=== PATIENT | female | born 1980 | race Caucasian/White ===

== ENCOUNTER 2017-08-06 15:24 | Emergency (ER) | payer SELFPAY ==
[2017-08-06 15:44] VITALS: BP 132/79; PULSE 87; RESP 18; TEMP 36.9; O2SAT 98; BMI 47.5
--- NOTE | 2017-08-06 16:11 | DI.RAD.S_ITS ---
PROCEDURE: XR FOOT RT MIN 3V INDICATIONS: pain, popping after taking step wrong TECHNIQUE: 3 views of the foot were acquired. COMPARISON: None. FINDINGS: Bones: Chronic appearing fractures involving the proximal second through fifth metatarsals noted. No acute fractures or dislocations. No suspicious bony lesions. Ankle and midfoot osteoarthritic degenerative changes noted. Soft tissues: No tibiotalar joint effusion. Achilles tendon appears normal. Ossification the Lisfranc ligament noted. IMPRESSION: 1. Chronic appearing second through fifth metatarsal fractures. 3. Ossification of the Lisfranc ligament. If there is clinical concern for Lisfranc joint pathology, then nonemergent MRI of the right foot should be considered for further evaluation Dictated by: Magali Torres MD, PhD on 08/06/2017 at 16:30 Approved by: Magali Torres MD, PhD on 08/06/2017 at 16:33
--- NOTE | 2017-08-06 16:32 | ED.LOWEXIN ---
HPI - Extremity Injury (Lower) <LIVIA Paez - Last Filed: 08/06/17 18:15> General Chief Complaint: Extremity Injury, Lower Stated Complaint: thinks she broke rt foot Time Seen by Provider: 08/06/17 15:46 Source: patient and family Mode of arrival: ambulatory Limitations: no limitations History of Present Illness HPI Narrative: Patient states she stepped off a step wrong yesterday. She states she misjudged the length of the step. She stepped down on her right foot, which she has a history of breaking before. She said she felt a pop. She is worried that she broke her foot again. She denies any acute numbness or tingling, but does state some numbness when she rubs her foot in an Timmy wrap. She has applied ice and taken ibuprofen. She denies hitting anything else or any other acute injury related to the step. Related Data Home Medications Medication Instructions Recorded Confirmed No Known Home Medications 08/06/17 08/06/17 Allergies Allergy/AdvReac Type Severity Reaction Status Date / Time Penicillins [PENICILLINS] Allergy Intermediate Verified 08/06/17 15:50 Review of Systems <BRIGHT Paez - Last Filed: 08/06/17 18:15> Review of Systems GENERAL: Denies chills, fatigue, malaise, fever, sweats. HEENT: Denies sinus pain, ear pain, sore throat, difficulty swallowing, dizziness. RESPIRATORY: Denies dyspnea, cough, wheezing, hemoptysis, sputum. CARDIOVASCULAR: Denies chest pain, palpitations, orthopnea, edema, GASTROINTESTINAL: Denies nausea, vomiting, abdominal pain, diarrhea, constipation, melena. : Denies dysuria, frequency, incontinence, hematuria, urinary retention. MUSCULOSKELETAL: See HPI SKIN: See HPI NEUROLOGIC: Denies weakness, headache, numbness, change in speech, confusion, seizures, incoordination. PSYCHIATRIC: No concerning psychosocial issues. 12 point review of systems is negative except for those stated above Exam <BRIGHT Paez - Last Filed: 08/06/17 18:15> Narrative Exam Narrative: GENERAL: This is a well-nourished, well-developed patient, in no acute distress with family at bedside. HEAD: Atraumatic. Normocephalic. No temporal or scalp tenderness. EYES: Pupils equal round and reactive. Extraocular motions intact. No scleral icterus. No injection or drainage. ENT: Nose without bleeding, purulent drainage or septal hematoma. Throat without erythema, tonsillar hypertrophy or exudate. Uvula midline. Airway patent. NECK: Trachea midline. No JVD or lymphadenopathy. Supple, nontender, no meningeal signs. CARDIOVASCULAR: Regular rate and rhythm without murmurs, gallops, or rubs. RESPIRATORY: Clear to auscultation. Breath sounds equal bilaterally. No wheezes, rales, or rhonchi. GASTROINTESTINAL: Abdomen soft, non-tender, nondistended. No hepato-splenomegaly, or palpable masses. No guarding. EXTREMITIES: Pain to palpation right midfoot. Decreased flexion due to pain of her right foot. Positive pedal pulses right foot. BACK: Nontender without deformity or crepitance. No flank tenderness. NEURO: AOx3. SKIN: Slight ecchymosis noted lateral aspect of right midfoot. Initial Vital Signs Initial Vital Signs: Vital Signs Temperature 98.4 F 08/06/17 15:44 Pulse Rate 87 08/06/17 15:44 Respiratory Rate 18 08/06/17 15:44 Blood Pressure 132/79 H 08/06/17 15:44 Pulse Oximetry 98 08/06/17 15:44 <Suleiman Marquez DO - Last Filed: 08/07/17 07:55> Initial Vital Signs Initial Vital Signs: Vital Signs Temperature 98.4 F 08/06/17 15:44 Pulse Rate 87 08/06/17 15:44 Respiratory Rate 18 08/06/17 15:44 Blood Pressure 132/79 H 08/06/17 15:44 Pulse Oximetry 98 08/06/17 15:44 Course <AARON Paez-BC - Last Filed: 08/06/17 18:15> Orders Ordered: ED Orders 08/06/17 16:11 XR foot RT min 3V Stat Reevaluation(s) Reevaluation #1: Patient is in bed. Discussed x-ray results with patient and family. Time: 14:45 Reevaluation #2: Discussed x-ray results with patient and family. X-ray shows no acute fractures, only chronic fractures. However patient does not remember having fractures other than her 5th metatarsal. Discussed conservative treatment patient. Suggested to ortho shoe nonweightbearing with crutches until specialty evaluation. Patient is in accordance with plan. Time: 15:15 Vital Signs - 8 hr 08/06/17 15:44 Temperature 98.4 F Pulse Rate 87 Respiratory Rate 18 Blood Pressure 132/79 H Pulse Oximetry 98 <Suleiman Marquez DO - Last Filed: 08/07/17 07:55> Orders Ordered: ED Orders 08/06/17 16:11 XR foot RT min 3V Stat Vital Signs - 8 hr 08/06/17 15:44 Temperature 98.4 F Pulse Rate 87 Respiratory Rate 18 Blood Pressure 132/79 H Pulse Oximetry 98 MDM - Extremity Injury (Lower) <LIVIA Paez - Last Filed: 08/06/17 18:15> Imaging Data Right foot Xray : Radiologist's impression: View Report History [address] [address] XRay Report Signed Patient: Essie Gutierrez MR#: [id number] : 1980 Acct:[id number] Age/Sex: 36 / F Date of Service: 08/06/17 Loc: ED Accession Number: [id number] Procedure: XR foot RT min 3V Ordering Provider: Beverley Waddell PROCEDURE: XR FOOT RT MIN 3V INDICATIONS: pain, popping after taking step wrong TECHNIQUE: 3 views of the foot were acquired. COMPARISON: None. FINDINGS: Bones: Chronic appearing fractures involving the proximal second through fifth metatarsals noted. No acute fractures or dislocations. No suspicious bony lesions. Ankle and midfoot osteoarthritic degenerative changes noted. Soft tissues: No tibiotalar joint effusion. Achilles tendon appears normal. Ossification the Lisfranc ligament noted. IMPRESSION: 1. Chronic appearing second through fifth metatarsal fractures. 3. Ossification of the Lisfranc ligament. If there is clinical concern for Lisfranc joint pathology, then nonemergent MRI of the right foot should be considered for further evaluation MDM Narrative Medical decision making narrative: Discussed at length with patient treatment of new versus old foot fractures. X-ray shows chronic 2nd through 5th metatarsal foot fractures. However patient only remembers breaking her 5th metatarsal. Given that patient has new onset pain after stepping off a step wrong way, we elected to treat her conservatively at this time with a ortho shoe as well as crutches. Discussed at length follow up with Orthopedics; gave referral to Tor[facility] Welsh, however patient states she might follow up with her own orthopedist at home. Discussed rest, ice, elevation as well as [id number] pain medications as needed. Discussed monitoring for circulation and right foot. Patient family and no questions or concerns upon discharge. Discharge Plan Departure Patient Disposition: Home, Self-Care Clinical Impression: Acute foot pain Discharge Date/Time: 08/06/17 17:24 Interventions: ED Discharge Assessment Last Done: 08/06/17 17:22 Instructions: DI for Foot Fracture, How To Perform RICE (Rest, Ice, Compress, Elevate), DI for Foot Pain Activity Restrictions/Additional Instructions: You are having new foot pain. Even though your x-ray states chronic fractures, we are treating you with a postop shoe and crutches just in case of fractures are not new. I would like you to follow up the primary care and/or Orthopedics. Use [id number] pain medication as needed for pain. I would like you to use rest ice compression and elevation. Please be re-evaluated if here concerned about the circulation of your right foot. I have given you a referral to [facility], but you are welcome to follow up with whichever foot/orthopedic physician you prefer. Prescriptions: No Action No Known Home Medications RF: 0 Referrals: [facility] [Outside] Ananth Weeks MD [Primary Care Provider] - <Suleiman Marquez DO - Last Filed: 08/07/17 07:55> Cosign ED Attending Barak Attestation: I was available for consultation during this patient's emergency department encounter
--- NOTE | 2017-08-06 16:42 | ED_ITS ---
HPI - Extremity Injury (Lower) <LIVIA Paez - Last Filed: 08/06/17 18:15> General Chief Complaint: Extremity Injury, Lower Stated Complaint: thinks she broke rt foot Time Seen by Provider: 08/06/17 15:46 Source: patient and family Mode of arrival: ambulatory Limitations: no limitations History of Present Illness HPI Narrative: Patient states she stepped off a step wrong yesterday. She states she misjudged the length of the step. She stepped down on her right foot , which she has a history of breaking before. She said she felt a pop. She is worried that she broke her foot again. She denies any acute numbness or tingling, but does state some numbness when she rubs her foot in an Timmy wrap. She has applied ice and taken ibuprofen. She denies hitting anything else or any other acute injury related to the step. Related Data Home Medications Medication Instructions Recorded Confirmed No Known Home Medications 08/06/17 08/06/17 Allergies Allergy/AdvReac Type Severity Reaction Status Date / Time Penicillins [PENICILLINS] Allergy Intermediate Verified 08/06/17 15:50 Review of Systems <BRIGHT Paez - Last Filed: 08/06/17 18:15> Review of Systems GENERAL: Denies chills, fatigue, malaise, fever, sweats. HEENT: Denies sinus pain, ear pain, sore throat, difficulty swallowing, dizziness. RESPIRATORY: Denies dyspnea, cough, wheezing, hemoptysis, sputum. CARDIOVASCULAR: Denies chest pain, palpitations, orthopnea, edema, GASTROINTESTINAL: Denies nausea, vomiting, abdominal pain, diarrhea, constipation, melena. : Denies dysuria, frequency, incontinence, hematuria, urinary retention. MUSCULOSKELETAL: See HPI SKIN: See HPI NEUROLOGIC: Denies weakness, headache, numbness, change in speech, confusion, seizures, incoordination. PSYCHIATRIC: No concerning psychosocial issues. 12 point review of systems is negative except for those stated above Exam <BRIGHT Paez - Last Filed: 08/06/17 18:15> Narrative Exam Narrative: GENERAL: This is a well-nourished, well-developed patient, in no acute distress with family at bedside. HEAD: Atraumatic. Normocephalic. No temporal or scalp tenderness. EYES: Pupils equal round and reactive. Extraocular motions intact. No scleral icterus. No injection or drainage. ENT: Nose without bleeding, purulent drainage or septal hematoma. Throat without erythema, tonsillar hypertrophy or exudate. Uvula midline. Airway patent. NECK: Trachea midline. No JVD or lymphadenopathy. Supple, nontender, no meningeal signs. CARDIOVASCULAR: Regular rate and rhythm without murmurs, gallops, or rubs. RESPIRATORY: Clear to auscultation. Breath sounds equal bilaterally. No wheezes , rales, or rhonchi. GASTROINTESTINAL: Abdomen soft, non-tender, nondistended. No hepato-splenomegaly , or palpable masses. No guarding. EXTREMITIES: Pain to palpation right midfoot. Decreased flexion due to pain of her right foot. Positive pedal pulses right foot. BACK: Nontender without deformity or crepitance. No flank tenderness. NEURO: AOx3. SKIN: Slight ecchymosis noted lateral aspect of right midfoot. Initial Vital Signs Initial Vital Signs: Vital Signs Temperature 98.4 F 08/06/17 15:44 Pulse Rate 87 08/06/17 15:44 Respiratory Rate 18 08/06/17 15:44 Blood Pressure 132/79 H 08/06/17 15:44 Pulse Oximetry 98 08/06/17 15:44 <Suleiman Marquez DO - Last Filed: 08/07/17 07:55> Initial Vital Signs Initial Vital Signs: Vital Signs Temperature 98.4 F 08/06/17 15:44 Pulse Rate 87 08/06/17 15:44 Respiratory Rate 18 08/06/17 15:44 Blood Pressure 132/79 H 08/06/17 15:44 Pulse Oximetry 98 08/06/17 15:44 Course <AARON Paez-BC - Last Filed: 08/06/17 18:15> Orders Ordered: ED Orders 08/06/17 16:11 XR foot RT min 3V Stat Reevaluation(s) Reevaluation #1: Patient is in bed. Discussed x-ray results with patient and family. Time: 14:45 Reevaluation #2: Discussed x-ray results with patient and family. X-ray shows no acute fractures, only chronic fractures. However patient does not remember having fractures other than her 5th metatarsal. Discussed conservative treatment patient. Suggested to ortho shoe nonweightbearing with crutches until specialty evaluation. Patient is in accordance with plan. Time: 15:15 Vital Signs - 8 hr 08/06/17 15:44 Temperature 98.4 F Pulse Rate 87 Respiratory Rate 18 Blood Pressure 132/79 H Pulse Oximetry 98 <Suleiman Marquez DO - Last Filed: 08/07/17 07:55> Orders Ordered: ED Orders 08/06/17 16:11 XR foot RT min 3V Stat Vital Signs - 8 hr 08/06/17 15:44 Temperature 98.4 F Pulse Rate 87 Respiratory Rate 18 Blood Pressure 132/79 H Pulse Oximetry 98 MDM - Extremity Injury (Lower) <LIVIA Paez - Last Filed: 08/06/17 18:15> Imaging Data Right foot Xray : Radiologist's impression: View Report History [address] [address] XRay Report Signed Patient: Essie Gutierrez MR#: [id number] : 1980 Acct:[id number] Age/Sex: 36 / F Date of Service: 08/06/17 Loc: ED Accession Number: [id number] Procedure: XR foot RT min 3V Ordering Provider: Beverley Waddell PROCEDURE: XR FOOT RT MIN 3V INDICATIONS: pain, popping after taking step wrong TECHNIQUE: 3 views of the foot were acquired. COMPARISON: None. FINDINGS: Bones: Chronic appearing fractures involving the proximal second through fifth metatarsals noted. No acute fractures or dislocations. No suspicious bony lesions. Ankle and midfoot osteoarthritic degenerative changes noted. Soft tissues: No tibiotalar joint effusion. Achilles tendon appears normal. Ossification the Lisfranc ligament noted. IMPRESSION: 1. Chronic appearing second through fifth metatarsal fractures. 3. Ossification of the Lisfranc ligament. If there is clinical concern for Lisfranc joint pathology, then nonemergent MRI of the right foot should be considered for further evaluation MDM Narrative Medical decision making narrative: Discussed at length with patient treatment of new versus old foot fractures. X-ray shows chronic 2nd through 5th metatarsal foot fractures. However patient only remembers breaking her 5th metatarsal. Given that patient has new onset pain after stepping off a step wrong way, we elected to treat her conservatively at this time with a ortho shoe as well as crutches. Discussed at length follow up with Orthopedics; gave referral to Tor[facility] Welsh, however patient states she might follow up with her own orthopedist at home. Discussed rest, ice, elevation as well as over-the -counter pain medications as needed. Discussed monitoring for circulation and right foot. Patient family and no questions or concerns upon discharge. Discharge Plan Departure Patient Disposition: Home, Self-Care Clinical Impression: Acute foot pain Discharge Date/Time: 08/06/17 17:24 Interventions: ED Discharge Assessment Last Done: 08/06/17 17:22 Instructions: DI for Foot Fracture, How To Perform RICE (Rest, Ice, Compress, Elevate), DI for Foot Pain Activity Restrictions/Additional Instructions: You are having new foot pain. Even though your x-ray states chronic fractures, we are treating you with a postop shoe and crutches just in case of fractures are not new. I would like you to follow up the primary care and/or Orthopedics. Use [id number] pain medication as needed for pain. I would like you to use rest ice compression and elevation. Please be re-evaluated if here concerned about the circulation of your right foot. I have given you a referral to [facility], but you are welcome to follow up with whichever foot/orthopedic physician you prefer. Prescriptions: No Action No Known Home Medications RF: 0 Referrals: [facility] [Outside] Ananth Weeks MD [Primary Care Provider] - <Suleiman Marquez DO - Last Filed: 08/07/17 07:55> Cosign ED Attending Barak Attestation: I was available for consultation during this patient's emergency department encounter
== END 2017-08-06 17:24 | disposition home or self-care (01) ==
PROVIDERS: Emergency Provider Nurse Practitioner Family; PCP Obstetrics & Gynecology
DX: M79.671 Pain in right foot (principal); W10.9XXA Fall (on) (from) unspecified stairs and steps, initial encounter
CPT/HCPCS: 29550; 73630; 99283

== ENCOUNTER 2023-10-07 18:34 | Inpatient (IN) | payer OTHER, SELFPAY ==
[2023-10-07] VITALS (12 sets, daily range): BP systolic 126–168; BP diastolic 62–108; PULSE 89–121; RESP 18; TEMP 36.7; O2SAT 90–98; BMI 58.0
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
[2023-10-07] MEDS: CEFAZOLIN VIAL 2 GM in SODIUM CHLORIDE 0.9% 100 ML IV (19:15)
[2023-10-07] MEDS: SODIUM CHLORIDE 0.9% 1,000 ML 125 ML IV (20:27)
[2023-10-07] MEDS: CEFAZOLIN VIAL 1 GM in SODIUM CHLORIDE 0.9% 100 ML IV (20:27)
[2023-10-07] MEDS: HYDROMORPHONE 1 MG INJ IV ×2 (20:28→21:56)
[2023-10-07 20:51] LABS: Add Manual Diff / Slide Review NO; Basophils Absolute Auto 100 /uL (0-100); Basophils Percent Auto 0.7 % (0-2); Eosinophils Absolute Auto 100 /uL (0-450); Eosinophils Percent Auto 0.7 % (2-4); Hematocrit 42.7 % (36-46); Hemoglobin 14.5 g/dL (12.0-16.0); Lymphocytes Absolute Auto 1800 /uL (1100-4500); Lymphocytes Percent Auto 22.6 % (25-40); Mean Corpuscular Hemoglobin 35.3 PG (26-34); Mean Corpuscular Volume 103.7 fL (80-100); Monocytes Absolute Auto 400 /uL (0-900); Neutrophils Absolute Auto 5600 /uL (1500-7000); Platelet Count 211 X10^3/uL (150-400); Red Blood Cell Count 4.12 X10^6/uL (4.0-5.2); Red Cell Distribution Width 14.5 % (11.6-14.8); White Blood Cell Count 7.9 X10^3/uL (4.5-11.0)
[2023-10-07 21:04] LABS: BUN Creatinine Ratio 15.5 (6-22); Blood Urea Nitrogen 11 mg/dL (7-17); Calcium 8.6 mg/dL (8.4-10.2); Carbon Dioxide 26 mmol/L (22-32); Chloride 107 mmol/L (98-107); Estimated Glomerular Filt Rate > 60 mL/min (>60); Glucose 127 mg/dL (70-100); HEMOLYSIS 23 (0-50); Potassium 4.1 mmol/L (3.4-5.1); Sodium 141 mmol/L (137-145)
[2023-10-07] MEDS: TET,DIPH,PERTUSS(ACELL),VAC/PF 0.5 ML SYRINGE IM (21:10)
[2023-10-07] MEDS: GENTAMICIN IV (21:11)
[2023-10-07] MEDS: SODIUM CHLORIDE 0.9% IV (21:11)
[2023-10-07 21:17] LABS: Pregnancy Test Serum,Qual Negative (Negative)
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
[2023-10-07] MEDS: HYDROMORPHONE 0.5 MG INJ IV (23:54)
[2023-10-08] VITALS (11 sets, daily range): BP systolic 102–137; BP diastolic 57–90; PULSE 79–101; RESP 13–24; TEMP 36.5–36.9; O2SAT 84–96
[2023-10-08] MEDS: OXYCODONE IR 10 MG TABLET PO (01:26)
[2023-10-08] MEDS: HYDROMORPHONE 0.5 MG INJ IV ×2 (02:07→06:07)
[2023-10-08] MEDS: CEFAZOLIN VIAL 3 GM in SODIUM CHLORIDE 0.9% 100 ML IV ×2 (02:48→08:15)
--- NOTE | 2023-10-08 06:18 | PC.NURSE ---
Essie was admitted from the ED with her right lower leg wrapped and recently splinted in the ED. Overnight pain level was quite high and she received dilaudid and oxycodone. The bandage on the right lower leg started to saturate so it was reinforced with gauze and abd pads. mIVF @ 125 mL/hr. Purewick in place. at bedside. Plan for OR at 0800
--- NOTE | 2023-10-08 07:51 | PC.NURSE ---
9716--pt to OR via bed; at bedside
[2023-10-08] MEDS: LACTATED RINGERS 1,000 ML 42 ML IV ×3 (07:59→10:03)
--- NOTE | 2023-10-08 08:46 | SUR.OPER ---
Supine on padded OR bed, head on pillow, arms secured on padded arm boards at <90 degrees abduction, legs uncrossed, safety belt at thigh, tape over blanket over non-operative leg.
[2023-10-08] MEDS: BUPIVACAINE 0.25% (PF) 30 ML, EPINEPHrine 0.15 MG INJ (09:57)
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
[2023-10-08] MEDS: ALBUTEROL/IPRATROPIUM 3 ML AMPUL INH (10:38)
[2023-10-08] MEDS: ACETAMINOPHEN 325 MG TABLET 650 MG PO ×3 (10:50→23:35)
[2023-10-08] MEDS: HYDROMORPHONE 1 MG INJ IV (10:51)
[2023-10-08] MEDS: OXYCODONE IR 5 MG TABLET PO ×4 (10:51→23:42)
[2023-10-08] MEDS: LACTATED RINGERS 1,000 ML 100 ML IV ×2 (11:42→20:23)
--- NOTE | 2023-10-08 13:51 | PT.IIE ---
Current Diagnoses Morbid (severe) obesity due to excess calories (10/07/23) Other fracture of right lower leg, initial encounter for open fracture type IIIA, IIIB, or IIIC (10/07/23) Body mass index [BMI] 50.0-59.9, adult (10/07/23) Surgery Performed Operation Date: 10/08/23 08:00 Actual Procedures p Irrigation and debridement and open reduction internal fixation right open ankle fracture, wound tissue closure(Right) - Clemencia Odell MD Physical Therapy Inpatient Evaluation/Re-Eval M1 PT/OT-IP Prior Functional Status Start: 10/08/23 13:13 Freq: NEEDED Status: Active Protocol: Document 10/08/23 13:12 MB (Rec: 10/08/23 13:51 MB [id number]) Medical Review Prior Functional Status Medical History Reviewed Yes Diet/Fluid Consistency Regular Communication WNLs Mobility and Gait I, worked at [employer] and on feet most of the day Activities of Daily Living and IADL's I, lives with and daughter, other loved ones check in Social History Household Members spouse,family,children Living Arrangements House Number of Floors (Floors) One Floor Number of Stairs To Enter/Railing? 5 steps and left rail to enter Employment Status Furniture Sales Consultant Employed Additional Social History Comment Low toilet, claw tub M2 PT-IP Current Condition Start: 10/08/23 13:13 Freq: NEEDED Status: Active Protocol: Document 10/08/23 13:12 MB (Rec: 10/08/23 13:51 MB [id number]) Physical Therapy Current Condition Current Condition Evaluation Date 10/08/23 Treatment Diagnosis R lateral malleolus fx s/p ORIF M3 PT-IP Subjective Start: 10/08/23 13:13 Freq: NEEDED Status: Active Protocol: Document 10/08/23 13:12 MB (Rec: 10/08/23 13:51 MB [id number]) Subjective Physical Therapy Visit Type Type Initial Evaluation Visit Start Time 13:12 Visit Stop Time 13:36 Number of BAKER OPERATOR AUTOMATIC Visits 0 Physical Therapy Visit Comments Patient Comments Pt reports 6/10 pain on top of right foot at rest and pain increases with mobility, reluctant but agreeable to PT consult. Therapy Pain Assessment Pain When Pain Assessed At Rest Pain Present Pain Present Pain Reported Location Right ankle Intensity 6 Scale Used Numeric (0 - 10) M4 PT-IP Mobility and Gait Start: 10/08/23 13:13 Freq: NEEDED Status: Active Protocol: Document 10/08/23 13:12 MB (Rec: 10/08/23 13:51 MB [id number]) PT-Bed Mobility Assessment Rolling Type of Rolling Roll to Right,Roll to Left Level of Assist Contact Guard Assistance, Minimal Assistance,1 Person Assistance Supine to Sit Supine to Sit Minimal Assistance,1 Person Assistance,Head of Bed Elevated,Bedrails Sit to Supine Sit to Supine Contact Guard Assistance,1 Person Assistance,Head of Bed Elevated,Bedrails PT-Transfer Assessment Sit to and From Stand Sit to and from Stand Minimal Assistance,2 Person Assistance,Use of Upper Extremities Equipment Transfer Assistive Device Gait Belt,Front Wheeled Walker Orthotic/Prosthetic Devices or Brace: No Transfers Transfer Destination Bed Transfer Technique STS from bed and back to bed Transfer Ability Level of Assist Minimal Assistance,2 Person Assistance,Use of Upper Extremities Comments Mobility Comments Bariatric RW brought to room, ed pt in goal to stand today and PT recs to keep right knee soft/bent, and try to use B hands on bed and left leg for standing and for STS transfer. PT and nsg nearby for first OOB today. Returned to bed d/t recliner in room is not an appropriate size for pt. O2 sats 90% on RA and HR in the low 100s BPM today. Pt stands with +2 CGA and bariatric RW at side of bed, also sits EOB. Gait Assessment Comments Gait Comments No gait today PT-Balance Assessment Sitting Balance and Reactions Static Sitting Balance Ability Good Dynamic Sitting Balance Ability Fair Standing Balance and Reactions Static Standing Balance Ability Fair Dynamic Standing Balance Ability Fair Device Used Bariatric RW M5 PT-IP Objective Assessments Start: 10/08/23 13:13 Freq: NEEDED Status: Active Protocol: Document 10/08/23 13:12 MB (Rec: 10/08/23 13:51 MB [id number]) Orientation Orientation/Cognition Level of Alertness Alert Orientation Name,Age,Birthday,Month,Date, Year,Day of Week,Place, Situation Language Function Ability No Deficits Noted Safety Awareness Understands Safety Issues Memory Description No Deficits Noted Gross Range of Motion Upper Extremity ROM Assessment Within Functional Limits Lower Extremity ROM Assessment Right Impaired Impairments Right ankle splinted and s/p ORIF Strength Upper Extremity Strength Assessment Within Functional Limits Lower Extremity Strength Assessment Right Impaired Comments Strength Comments LLE functional and right ankle splinted Coordination Assessment Gross Coordination Gross Coordination Impaired Assessment Coordination Comments Impaired coordination of right foot and ankle s/p fracture and surgery, splinted Sensation Assessment Comments Sensation Comments Pt has sensation in toes Muscle Tone Muscle Tone WNL Yes M6 PT-IP Treatment Start: 10/08/23 13:13 Freq: NEEDED Status: Active Protocol: Document 10/08/23 13:12 MB (Rec: 10/08/23 13:51 MB [id number]) Physical Therapy Treatment Education Education Provided Weight Bearing Status,Safety M7 PT-IP Assessment and Plan Start: 10/08/23 13:13 Freq: NEEDED Status: Active Protocol: Document 10/08/23 13:12 MB (Rec: 10/08/23 13:51 MB [id number]) PT Summary Assessment and Plan Potential Rehabilitation Potential Good Status of Condition at Evaluation Evolving Summary Impairments Pain,ROM,Strength,Balance, Coordination,Bed Mobility, Transfers,Gait,Activity Tolerance Progress Towards Goals Progressing Toward Goals Assessment Summary Pt is a 43 y/o female s/p open fracture right malleolus and now post-op ORIF. Pt is WBAT with AD and PT ed pt and her friend in the room that while she is WBAT, she should only be standing and gait training far enough to do what she needs to do in the BR, kitchen , etc. Pt has increased pain post-op on top of her foot and pain increases with bed mobility and is not as bad standing statically. Ed pt in benefits of using UE and LLE to help unweight the right foot. Friend asks about knee scooter and PT educates about the risks of this at this time . Recommend bariatric RW use immediately at d/c. Pt does work full-time and will have to take time off work d/t injury. Goals Bed Mobility Goal Independent Transfer Goal Independent,Front Wheeled Walker Gait Goal Independent,Front Wheel Walker Gait Distance 50 Other Goals Limit gait distance to necessary distances in the house given LE injury/wound/in splint Pt will ascend and descend 3 steps with left rail and no more than min A to allow safe home entry. Pt may have to sit and bump up steps. Days to Meet Goals 5 Frequency of Treatment Frequency Of Treatment Once a Day Treatment Plan Physical Therapy Treatment Plan Bed Mobility Training,Transfer Training,Gait Training, Therapeutic Exercise,Balance Retraining,Post Op Education, Discharge Planning,Hot or Cold Pack,Neuromuscular Re-ed, Coordination Retraining,Manual Therapy Weight Bearing Status Weight Bearing Status Weight Bear as Tolerated Allowed Weight Bearing Amount (enter % RLE with use of ADs and PT or #) (%) recommends bariatric RW Discharge Recommendations PT Discharge Recommendations Home with Assistance Equipment Needed for Home Before Batriatric RW Discharge Transportation Needs at Discharge Private Vehicle
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
[2023-10-08] MEDS: ALBUTEROL 2.5 MG/3 ML NEB (ADULT) INH (14:16)
[2023-10-08 14:55] LABS: Hemoglobin A1C% w Est Avg Glu 5.7 % (4.0-6.0)
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
[2023-10-08] MEDS: CEFAZOLIN 2 GM/100 ML PREMIX 100 ML IV ×2 (16:01→23:35)
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
[2023-10-08] MEDS: ENOXAPARIN 40 MG/0.4 ML SYRINGE SUBCUT (20:22)
[2023-10-09] MEDS: ACETAMINOPHEN 325 MG TABLET 650 MG PO ×3 (04:39→15:06)
[2023-10-09] MEDS: OXYCODONE IR 5 MG TABLET PO ×5 (04:39→21:46)
[2023-10-09 05:00] VITALS: O2SAT 94
[2023-10-09 05:33] LABS: Add Manual Diff / Slide Review NO; Basophils Absolute Auto 100 /uL (0-100); Basophils Percent Auto 0.6 % (0-2); Eosinophils Absolute Auto 0 /uL (0-450); Eosinophils Percent Auto 0.2 % (2-4); Hematocrit 37.5 % (36-46); Hemoglobin 12.5 g/dL (12.0-16.0); Lymphocytes Absolute Auto 1900 /uL (1100-4500); Lymphocytes Percent Auto 18.3 % (25-40); Mean Corpuscular HGB Conc 33.3 % (30-36); Monocytes Absolute Auto 1000 /uL (0-900); Monocytes Percent Auto 9.6 % (3-14); Neutrophils Absolute Auto 7500 /uL (1500-7000); Neutrophils Percent Auto 71.3 % (50-75); Platelet Count 156 X10^3/uL (150-400); Red Blood Cell Count 3.57 X10^6/uL (4.0-5.2); Red Cell Distribution Width 14.6 % (11.6-14.8); White Blood Cell Count 10.5 X10^3/uL (4.5-11.0)
[2023-10-09 05:52] LABS: Blood Urea Nitrogen 13 mg/dL (7-17); Calcium 8.1 mg/dL (8.4-10.2); Carbon Dioxide 30 mmol/L (22-32); Chloride 102 mmol/L (98-107); Estimated Glomerular Filt Rate > 60 mL/min (>60); Glucose 139 mg/dL (70-100); HEMOLYSIS < 15 (0-50); Potassium 4.2 mmol/L (3.4-5.1); Sodium 134 mmol/L (137-145)
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
[2023-10-09] MEDS: LACTATED RINGERS 1,000 ML 100 ML IV (08:02)
--- NOTE | 2023-10-09 08:13 | CM.DPC ---
DCP Cont. Reviewed EMR and team rounds for status updates. Per Hospitalist, pt is now medically cleared for home d/c. Family will transport home, no further DCP needs indicated at this time.
[2023-10-09] MEDS: DOCUSATE 100 MG CAPSULE PO ×2 (10:15→20:36)
[2023-10-09] MEDS: ENOXAPARIN 40 MG/0.4 ML SYRINGE SUBCUT ×2 (10:15→20:36)
--- NOTE | 2023-10-09 10:20 | OT.IP.EVAL ---
Current Diagnoses Morbid (severe) obesity due to excess calories (10/07/23) Other fracture of right lower leg, initial encounter for open fracture type IIIA, IIIB, or IIIC (10/07/23) Body mass index [BMI] 50.0-59.9, adult (10/07/23) Surgery Performed Operation Date: 10/08/23 08:00 Actual Procedures p Irrigation and debridement and open reduction internal fixation right open ankle fracture, wound tissue closure(Right) - Clemencia Odell MD Past Medical History (Last Reviewed 10/09/23 @ 07:55 by Clemencia Odell MD) Morbid obesity with BMI of 50.0-59.9, adult Nicotine addiction Open fracture of right ankle Type III open fracture of ankle Surgical History (Last Reviewed 10/09/23 @ 07:55 by Clemencia Odell MD) Status post ORIF of fracture of ankle Occupational Therapy Inpatient Evaluation/Re-Eval M1 PT/OT-IP Prior Functional Status Start: 10/08/23 13:13 Freq: NEEDED Status: Active Protocol: Document 10/09/23 10:26 [facility] (Rec: 10/09/23 10:42 [facility] [id number]) Medical Review Prior Functional Status Medical History Reviewed Yes Diet/Fluid Consistency Regular Communication WNLs Mobility and Gait I, worked at [employer] and on feet most of the day Activities of Daily Living and IADL's I, lives with and daughter, other loved ones check in Social History Household Members spouse,family,children Living Arrangements House Number of Floors (Floors) One Floor Number of Stairs To Enter/Railing? 5 steps and left rail to enter Employment Status Building Mechanic Employed Additional Social History Comment Low toilet, claw tub, bed rail M2 OT-IP Current Condition Start: 10/09/23 10:26 Freq: Status: Active Protocol: Document 10/09/23 10:26 [facility] (Rec: 10/09/23 10:42 [facility] [id number]) Occupational Therapy Current Condition Current Condition Evaluation Date 10/09/23 Treatment Diagnosis S/P open right ankle fracture Diagnosis Onset Date 10/07/23 Weight Bearing Status Weight Bearing Status Weight Bear as Tolerated M3 OT- IP Subjective and Pain Start: 10/09/23 10:26 Freq: Status: Active Protocol: Document 10/09/23 10:26 [facility] (Rec: 10/09/23 10:42 [facility] [id number]) OT- Subjective Occupational Therapy Visit Type Type Initial Evaluation Visit Start Time 08:45 Visit Stop Time 10:25 Notes Pt seen from [id number], 1008- 1020 Occupational Therapy Visit Comments Patient Comments Pt agreed to get up. Patient/Caregiver Goals To go home. OT Pain Assessment Pain When Pain Assessed During Mobility Pain Present Pain Present Pain Reported Location Right ankle Intensity 10 Scale Used Numeric (0 - 10) M4 OT- IP ADL's Start: 10/09/23 10:26 Freq: Status: Active Protocol: Document 10/09/23 10:26 [facility] (Rec: 10/09/23 10:42 [facility] [id number]) OT [id number]-[id number]-[id number] General Evaluation Self-Feeding Ability Independent OT ADL-Grooming General Evaluation Grooming Ability Independent OT ADL-Oral Care General Eval Oral Care Ability Independent OT ADL-Dressing General Eval Lower Body Dressing Ability Total Assistance OT ADL-Toileting General Evaluation Toileting Ability Total Assistance Comments OT Toileting Comments Pt use of purewick at this time, Pt will benefit from a heavy duty BSC. OT ADL-Bathing Comments OT Bathing Comments SPonge bath will probably be more appropriate at this time as pt has a claw foot tub. M5 OT- IP IADL's Start: 10/09/23 10:26 Freq: Status: Active Protocol: Document 10/09/23 10:26 [facility] (Rec: 10/09/23 10:42 [facility] [id number]) OT-Instrumental Activities of Daily Living Home Safety Awareness Awareness of Need for Assistance at Home Good Awareness Ability to Problem Solve Emergency Able to Problem Solve Situations Home Safety Comments Pt has a supportive to assist at home. M6 OT- IP Functional Cognition Start: 10/09/23 10:26 Freq: Status: Active Protocol: Document 10/09/23 10:26 [facility] (Rec: 10/09/23 10:42 [facility] [id number]) Cognitive Factors Limiting Selfcare Function Cognitive Ability Level of Alertness Alert Patient Orientation Name,Age,Birthday,Month,Date, Year,Day of Week,Place, Situation Attention Span Ability Capable of Focused Attention, Capable of Sustained Attention Cognitive Comments Cognitive Assessment Comments Pt able to follow commands for ADl and mobility needs but needing lots of vc for reassurance and encouragement . OT- Vision and Hearing OT- Hearing Assessment OT- Hearing Assessment WFL OT- Vision Assessment Visual Attentiveness WFL Occular Pursuits WFL Vision Assessment Comments Glasses for distance. M7 OT- IP Mobility and Balance Start: 10/09/23 10:26 Freq: Status: Active Protocol: Document 10/09/23 10:26 [facility] (Rec: 10/09/23 10:42 [facility] [id number]) OT- Bed Mobility Assessment Supine to Sit Supine to Sit Assist Maximum Assistance,2 Person Assistance,Head of Bed Elevated,Bedrails Sit to Supine Sit to Supine Assist Maximum Assistance,1 Person Assistance,Bedrails OT-Transfer Assessment Sit to and From Stand Sit to and from Stand Maximum Assistance,2 Person Assistance Transfers Transfer Ability Maximum Assistance,2 Person Assistance Technique Transfer Destination Bed,Wheelchair Transfer Technique Stand Step Pivot Devices Transfer Assistive Devices Gait Belt,Front Wheeled Walker Comments Mobility Comments MAX AX 1-2 for bed mobility needs. Pt states has a recliner but cushion are too low. MAX AX 2 to stand to the FWW and able to slide her Right foot side to side to get around. Pt will benefit from wc for long distances. OT- Balance Assessment Sitting Balance and Reactions Static Sitting Balance Ability Good Dynamic Sitting Balance Ability Fair Standing Balance and Reactions Static Standing Balance Ability Poor Dynamic Standing Balance Ability Poor M8 OT- IP Objective Assessments Start: 10/09/23 10:26 Freq: Status: Active Protocol: Document 10/09/23 10:26 [facility] (Rec: 10/09/23 10:42 [facility] [id number]) OT Gross Range of Motion Upper Extremity Range of Motion Assessment Within Functional Limits OT Strength Upper Extremity Strength Assessment Within Functional Limits M9 OT- IP Assessment and Plan Start: 10/09/23 10:26 Freq: Status: Active Protocol: Document 10/09/23 10:26 [facility] (Rec: 10/09/23 10:42 [facility] [id number]) OT Summary Assessment and Plan Potential Rehabilitation Potential Good Analytic Complexity at Evaluation Moderate Summary OT Impairments Pain,Strength,Balance, Functional Mobility,Dressing, Toileting,Bathing,Toilet Transfers,Shower Transfers, Activity Tolerance Progress Towards Goals Slow Progress due to Pain Assessment Summary Pt MOD complexity and main barriers are steps, pain, needing encouragement to use her RLE, and will now need assist for all ADL and mobility needs. Pt at this time would benefit from skilled rehab , however pt adamantly refusing at this time and therefore would be best to have BLS assist her into her house and have 24/7 assist. Bariatric FWW issued , LB dressing equipment, and will be best to have a bariatric BSC. Goals Dressing Goal Minimal Assistance Toileting Goal Minimal Assistance Bathing Goal Moderate Assistance Toilet Transfer Goal Contact Guard Assistance Shower Transfer Goal Minimal Assistance Days to Meet Goals 20 Frequency of Treatment Other frequency 5x/week Treatment Plan OT Treatment Plan ADL Training,Functional Mobility,Patient/Family Education,Discharge Planning Other Treatment Recommendations and Next Transfer to [facility] X 1. Treatment Focus Discharge Recommendations OT Discharge Recommendations SNF Rehab,Home vs SNF Other Discharge Recommendations if going home 24/7 assist and home health Home Equipment Needs heavy duty BSC, WC Transportation Needs at Discharge Stretcher/Ambulance
--- NOTE | 2023-10-09 10:26 | CM.DPC ---
DCP Cont. Reviewed EMR and team rounds for status updates. Pt was unable to get out of bed, unable to use the walker or work with PT/OT, even after several attempts. Discussed plan for BLS transport home tomorrow 10/09. She declines SNF. Will need Home Health, will discuss this with her prior to d/c home.
--- NOTE | 2023-10-09 10:29 | PT.IPTN ---
Current Diagnoses Morbid (severe) obesity due to excess calories (10/07/23) Other fracture of right lower leg, initial encounter for open fracture type IIIA, IIIB, or IIIC (10/07/23) Body mass index [BMI] 50.0-59.9, adult (10/07/23) Surgery Performed Operation Date: 10/08/23 08:00 Actual Procedures p Irrigation and debridement and open reduction internal fixation right open ankle fracture, wound tissue closure(Right) - Clemencia Odell MD Physical Therapy Treatment Note M2 PT-IP Current Condition Start: 10/08/23 13:13 Freq: NEEDED Status: Active Protocol: Document 10/08/23 13:12 MB (Rec: 10/08/23 13:51 MB [id number]) Physical Therapy Current Condition Current Condition Evaluation Date 10/08/23 Treatment Diagnosis R lateral malleolus fx s/p ORIF M3 PT-IP Subjective Start: 10/08/23 13:13 Freq: NEEDED Status: Active Protocol: Document 10/09/23 08:52 MB (Rec: 10/09/23 10:29 MB [id number]) Subjective Physical Therapy Visit Type Type Treatment Note Visit Start Time 08:52 Visit Stop Time 09:45 Number of BULK PALLET BUILDER Visits 0 Physical Therapy Visit Comments Patient Comments Pt with nearby this a.m. Pt c/o high pain in right LE at 8/10 at rest. Therapy Pain Assessment Pain When Pain Assessed At Rest Pain Present Pain Present Pain Reported Location Right ankle Intensity 8 Scale Used Numeric (0 - 10) M4 PT-IP Mobility and Gait Start: 10/08/23 13:13 Freq: NEEDED Status: Active Protocol: Document 10/09/23 08:52 MB (Rec: 10/09/23 10:29 MB [id number]) PT-Bed Mobility Assessment Rolling Type of Rolling Roll to Right Level of Assist Minimal Assistance,1 Person Assistance Supine to Sit Supine to Sit Minimal Assistance,1 Person Assistance,Head of Bed Elevated,Bedrails Scooting Scooting to Edge of Bed Minimal Assistance PT-Transfer Assessment Sit to and From Stand Sit to and from Stand Maximum Assistance,1 Person Assistance,2 Person Assistance ,Use of Upper Extremities Equipment Transfer Assistive Device Gait Belt,Front Wheeled Walker Orthotic/Prosthetic Devices or Brace: No Transfers Transfer Destination Bed,Wheelchair Transfer Technique Stand Step Pivot Transfer Ability Level of Assist Maximum Assistance,1 Person Assistance,2 Person Assistance ,Use of Upper Extremities Comments Mobility Comments Pt with increased pain, anxiety about movement and tearfulness today. Pain increases to 10/10 with mobility. is nearby for treatment. Pt states that angle of foot in splint is too difficult to use for WB. Placed coban around splint and this does not help. Many transfers today: OOB to the right with STS to RW, step pivot to left to w/c, several attempts STS w/c to RW at steps without success with 2 person assistance, use of w/c to push up from and blocked bariatric RW, STS w/c to bed with pt reaching for bedrail with both hands and walker in front to complete step pivot and pt only requires max A for this last transfer. OT assists pt back to bed as PT manages DME. Gait Assessment Comments Gait Comments Unable to fully gait train, step pivot only PT-Balance Assessment Sitting Balance and Reactions Static Sitting Balance Ability Good Dynamic Sitting Balance Ability Fair Standing Balance and Reactions Static Standing Balance Ability Fair Dynamic Standing Balance Ability Fair Device Used Bariatric RW M5 PT-IP Objective Assessments Start: 10/08/23 13:13 Freq: NEEDED Status: Active Protocol: Document 10/08/23 13:12 MB (Rec: 10/08/23 13:51 MB [id number]) Orientation Orientation/Cognition Level of Alertness Alert Orientation Name,Age,Birthday,Month,Date, Year,Day of Week,Place, Situation Language Function Ability No Deficits Noted Safety Awareness Understands Safety Issues Memory Description No Deficits Noted Gross Range of Motion Upper Extremity ROM Assessment Within Functional Limits Lower Extremity ROM Assessment Right Impaired Impairments Right ankle splinted and s/p ORIF Strength Upper Extremity Strength Assessment Within Functional Limits Lower Extremity Strength Assessment Right Impaired Comments Strength Comments LLE functional and right ankle splinted Coordination Assessment Gross Coordination Gross Coordination Impaired Assessment Coordination Comments Impaired coordination of right foot and ankle s/p fracture and surgery, splinted Sensation Assessment Comments Sensation Comments Pt has sensation in toes Muscle Tone Muscle Tone WNL Yes M6 PT-IP Treatment Start: 10/08/23 13:13 Freq: NEEDED Status: Active Protocol: Document 10/08/23 13:12 MB (Rec: 10/08/23 13:51 MB [id number]) Physical Therapy Treatment Education Education Provided Weight Bearing Status,Safety M7 PT-IP Assessment and Plan Start: 10/08/23 13:13 Freq: NEEDED Status: Active Protocol: Document 10/09/23 08:52 MB (Rec: 10/09/23 10:29 MB [id number]) PT Summary Assessment and Plan Potential Rehabilitation Potential Fair Status of Condition at Evaluation Evolving Summary Impairments Pain,ROM,Strength,Balance, Coordination,Bed Mobility, Transfers,Gait,Activity Tolerance Progress Towards Goals Progressing Toward Goals Assessment Summary Pt has increased pain and anxiety and tearfulness with mobility today and she requires encouragement and max A of 2 people for most transfer tasks today. Last transfer with use of bed rail with max A of one. Pt is unable to try stair training today despite dependent assistance to push in w/c to steps and PT reviews two ways to go up the steps with pt and : up with both hands on left rail and lead left foot first or boost up on bum. Pt and state that they do not think that pt could get back up if she boosts up and pt does not think she can WB at all through right foot to trip step-to step up as demo'd by PT. Given pt's current abilities, fearfulness/anxiety and body mass, therapists do not feel it is safe to push more with stair attempt today. Therapists speak with SW about SNF vs ambulance transport home and SW to follow-up with pt. Con't mobility efforts next date as pt tolerates. Bariatric RW order received and walker dropped off for pt. Goals Bed Mobility Goal Independent Transfer Goal Independent,Front Wheeled Walker Gait Goal Independent,Front Wheel Walker Gait Distance 50 Other Goals Limit gait distance to necessary distances in the house given LE injury/wound/in splint Pt will ascend and descend 3 steps with left rail and no more than min A to allow safe home entry. Pt may have to sit and bump up steps. Days to Meet Goals 5 Frequency of Treatment Frequency Of Treatment Once a Day Treatment Plan Physical Therapy Treatment Plan Bed Mobility Training,Transfer Training,Gait Training, Therapeutic Exercise,Balance Retraining,Post Op Education, Discharge Planning,Hot or Cold Pack,Neuromuscular Re-ed, Coordination Retraining,Manual Therapy Weight Bearing Status Weight Bearing Status Weight Bear as Tolerated Allowed Weight Bearing Amount (enter % RLE with use of ADs and PT or #) (%) recommends bariatric RW Discharge Recommendations PT Discharge Recommendations Home vs SNF Other Discharge Recommendations Ambulance transport home Transportation Needs at Discharge Private Vehicle
[2023-10-09 11:00] VITALS: BP 109/69; PULSE 72; RESP 15; O2SAT 94
--- NOTE | 2023-10-09 12:22 | PC.NURSE ---
Assess- Patient is alert and oriented x4, she has a soft splinted cast on her r.lower extremity and is tolerating this well. She got up with physical therapy this morning and was able to stand and get up into the wheel chair with a walker but was unable to complete the stairs. She will not be discharged today. Patient given oxycodone, tylenol, and inbuprofen for pain and discomfort. in room and visiting with patient.
[2023-10-09] MEDS: IBUPROFEN 600 MG TABLET PO (15:05)
--- NOTE | 2023-10-09 15:23 | PM.CALLCOV.1 ---
Call Coverage Note Note Date of Patient Contact: 10/09/23 Narrative of Care Provided: Patient is without wheezing and denies shortness of breath today. Medicine will sign off. Okay to prescribe outpatient albuterol inhaler as needed for dyspnea if her dyspnea is ongoing although she appears to be improving with incentive spirometry. Can follow up with PCP for outpatient PFTs if ongoing symptoms. Please do not hesitate to reach out to hospitalist service with any additional questions.
[2023-10-09] MEDS: HYDROMORPHONE 0.5 MG INJ IV (17:46)
[2023-10-09 20:00] VITALS: BP 111/59; PULSE 82; RESP 17; TEMP 35.8; O2SAT 97
[2023-10-09] MEDS: diphenhydrAMINE 50 MG/ML VIAL IV (21:47)
[2023-10-09] MEDS: SODIUM CHLORIDE 0.9% FLUSH 10 ML IV (21:54)
[2023-10-10] MEDS: ACETAMINOPHEN 325 MG TABLET 650 MG PO ×3 (02:15→12:11)
[2023-10-10] MEDS: HYDROMORPHONE 0.5 MG INJ IV ×2 (02:15→13:19)
--- NOTE | 2023-10-10 03:47 | PC.NURSE ---
Addendum entered by Socorro Swann R.N. 10/10/23 06:50: PureWick has been removed this am. Pt how has a disposable brief. Pt still having difficulty turning in bed with nursing staff. She is concerned about safe transportation going home. Original Note: Pt requested to continue to use PureWick tonight due to feeling sore all over her body and afraid that she might not make it to the bathroom/bedside commode due to her soft splint to right lower extremity. Pt patient she wasn't able to go home yesterday due to failing stairs training with PT. Pt stated they want me to use a walker to get out of the wheelchair and steady myself and I just can't and they would not let my helping me out, even though she is the one that will be helping me at home. According to patient she only has 2 steps to get into the house with no railing. This nurse explained to the patient the importance of moving around more frequently and hence having a pureWick at night time would not facilitate this. will continue to monitor.
[2023-10-10] MEDS: OXYCODONE IR 5 MG TABLET PO ×2 (06:39→10:54)
[2023-10-10] MEDS: ENOXAPARIN 40 MG/0.4 ML SYRINGE SUBCUT (08:12)
[2023-10-10] MEDS: DOCUSATE 100 MG CAPSULE PO (08:12)
[2023-10-10] MEDS: IBUPROFEN 600 MG TABLET PO (08:12)
[2023-10-10] MEDS: SODIUM CHLORIDE 0.9% FLUSH 10 ML IV (08:14)
--- NOTE | 2023-10-10 09:10 | PT.IPTN ---
Current Diagnoses Morbid (severe) obesity due to excess calories (10/07/23) Other fracture of right lower leg, initial encounter for open fracture type IIIA, IIIB, or IIIC (10/07/23) Body mass index [BMI] 50.0-59.9, adult (10/07/23) Surgery Performed Operation Date: 10/08/23 08:00 Actual Procedures p Irrigation and debridement and open reduction internal fixation right open ankle fracture, wound tissue closure(Right) - Clemencia Odell MD Physical Therapy Treatment Note M2 PT-IP Current Condition Start: 10/08/23 13:13 Freq: NEEDED Status: Active Protocol: Document 10/08/23 13:12 MB (Rec: 10/08/23 13:51 MB [id number]) Physical Therapy Current Condition Current Condition Evaluation Date 10/08/23 Treatment Diagnosis R lateral malleolus fx s/p ORIF M3 PT-IP Subjective Start: 10/08/23 13:13 Freq: NEEDED Status: Active Protocol: Document 10/10/23 09:10 AB (Rec: 10/10/23 11:48 AB [id number]) Subjective Physical Therapy Visit Type Type Treatment Note Visit Start Time 09:10 Visit Stop Time 09:51 Number of CAR WRECKER Visits 0 Physical Therapy Visit Comments Patient Comments agreeable to do PT Therapy Pain Assessment Pain When Pain Assessed At Rest Location Right ankle Intensity 7 Scale Used Numeric (0 - 10) Pain Management Techniques Distraction,Modification of Treatment,Re-positioning, Timing of Activity with Medications M4 PT-IP Mobility and Gait Start: 10/08/23 13:13 Freq: NEEDED Status: Active Protocol: Document 10/10/23 09:10 AB (Rec: 10/10/23 11:48 AB [id number]) PT-Bed Mobility Assessment Supine to Sit Supine to Sit Moderate Assistance,Head of Bed Elevated,Bedrails Sit to Supine Sit to Supine Moderate Assistance PT-Transfer Assessment Sit to and From Stand Sit to and from Stand Maximum Assistance,1 Person Assistance,2 Person Assistance ,Use of Upper Extremities Equipment Transfer Assistive Device Gait Belt,Front Wheeled Walker Orthotic/Prosthetic Devices or Brace: No Transfers Transfer Destination Chair,Bedside Commode Transfer Technique Stand Step Pivot Transfer Ability Level of Assist Moderate Assistance,1 Person Assistance,Use of Upper Extremities Comments Mobility Comments pt supine in bed and agreeable to do PT. pt's spouse in room. pt completed supine to sit HOB elevated mod A and used bed rail to assist. completed sit to stand from EOB max A and max cues and step transfer to chair using FWW mod A and cues. attempted sit to stand from chair x 5 attempts requiring max A x 2 and max cues. upon standing pt stated that she needs to use the toilet. bedside commmode positioned behind pt. sit to stand from the bedside commode max A x 2 with pt pulling on bed rail to assist . required assistance for hygiene care. step transfer to EOB mod A and cues using FWW. pt completed sit to supine mod A for LE elevation to bed. pt used bed rail to assist. positioned pt on the bed. call light and table placed within reach. informed pt and spouse regarding DME needs: bed rail/ cane, w/c and bedside commode M5 PT-IP Objective Assessments Start: 10/08/23 13:13 Freq: NEEDED Status: Active Protocol: Document 10/08/23 13:12 MB (Rec: 10/08/23 13:51 MB [id number]) Orientation Orientation/Cognition Level of Alertness Alert Orientation Name,Age,Birthday,Month,Date, Year,Day of Week,Place, Situation Language Function Ability No Deficits Noted Safety Awareness Understands Safety Issues Memory Description No Deficits Noted Gross Range of Motion Upper Extremity ROM Assessment Within Functional Limits Lower Extremity ROM Assessment Right Impaired Impairments Right ankle splinted and s/p ORIF Strength Upper Extremity Strength Assessment Within Functional Limits Lower Extremity Strength Assessment Right Impaired Comments Strength Comments LLE functional and right ankle splinted Coordination Assessment Gross Coordination Gross Coordination Impaired Assessment Coordination Comments Impaired coordination of right foot and ankle s/p fracture and surgery, splinted Sensation Assessment Comments Sensation Comments Pt has sensation in toes Muscle Tone Muscle Tone WNL Yes M6 PT-IP Treatment Start: 10/08/23 13:13 Freq: NEEDED Status: Active Protocol: Document 10/10/23 09:10 AB (Rec: 10/10/23 11:48 AB [id number]) Physical Therapy Treatment Education Education Provided Safety M7 PT-IP Assessment and Plan Start: 10/08/23 13:13 Freq: NEEDED Status: Active Protocol: Document 10/10/23 09:10 AB (Rec: 10/10/23 11:48 AB [id number]) PT Summary Assessment and Plan Potential Rehabilitation Potential Fair Summary Impairments Pain,ROM,Strength,Balance, Coordination,Sensation,Bed Mobility,Transfers,Gait, Activity Tolerance Progress Towards Goals Slow Progress due to Pain,Slow Progress due to Medical Issues,Slow Progress due to Activity Tolerance,Slow Progress - Other Assessment Summary pt requiring max Ax 2 for sit to stand from chair max A x 2 and max cues. informed pt and spouse regarding equipement needs for d/c. spouse stated that she will rent a w/c and obtain a bedside commode for pt. pt also has access to a bed cane that she can use. pt plans to go home via BLS to assist her to get into the house. spouse stated fawn they are hoping the fire department will be able to assist them to get in. Goals Bed Mobility Goal Independent Transfer Goal Independent,Front Wheeled Walker Gait Goal Independent,Front Wheel Walker Gait Distance 50 Other Goals Limit gait distance to necessary distances in the house given LE injury/wound/in splint Pt will ascend and descend 3 steps with left rail and no more than min A to allow safe home entry. Pt may have to sit and bump up steps. Days to Meet Goals 5 Frequency of Treatment Frequency Of Treatment Once a Day Treatment Plan Physical Therapy Treatment Plan Bed Mobility Training,Transfer Training,Gait Training, Therapeutic Exercise,Balance Retraining,Post Op Education, Discharge Planning,Hot or Cold Pack,Neuromuscular Re-ed, Coordination Retraining,Manual Therapy Weight Bearing Status Weight Bearing Status Weight Bear as Tolerated Allowed Weight Bearing Amount (enter % RLE WBAT with AD or #) (%) Recommendations To Nursing Amount of Assist Needed 2 Person Assist Discharge Recommendations PT Discharge Recommendations Home with 29/08 Assist Available,Home Health,SNF Rehab Transportation Needs at Discharge Wheelchair/Cabulance,Stretcher /Ambulance
--- NOTE | 2023-10-10 10:36 | CM.DPC ---
DCP Cont. Reviewed EMR and team rounds for status updates. Pt's has brought another family member's car today that pt will be able to get into easier than their truck. Plan is for the RN and DRIVER'S LICENSE EXAMINER to assist with her getting into the car, and they will see if they will need to call the paramedics to assist her getting out of the car and into the house. No further DCP needs identified at this time.
--- NOTE | 2023-10-10 11:07 | OT.IPNOTE ---
Able to finalize all equipment needs with pt and . Pt not wanting to get up at this time. NO charge.
[2023-10-10 12:00] VITALS: BP 119/66; PULSE 87; RESP 15; TEMP 35.9; O2SAT 96
--- NOTE | 2023-10-10 14:19 | PC.NURSE ---
Patient is dressed and ready for discharge home with spouse. IV has been removed. Patient has been cleared by PT to go home. Went over d/c instructions with patient and spouse. Discussed d/c meds, time of last dose, reviewed stroke education, s/s of infection, elevating and icing, and follow up. Patient denied further questions and was taken out via wheelchair and assisted into car with spouse and all belongings. Reminded patient to drink plenty of fluids to prevent constipation and dehydration, and no driving while on narcotics. Reviewed lovenox injection technique with patient, and patient stated she felt confident with self administering dose.
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
== END 2023-10-10 14:24 | disposition home or self-care (01) | DRG 493 ==
LOC: ED 20:34 → AC 22:21
PROVIDERS: Family Medicine; Admitting Provider Orthopaedic Surgery Foot and Ankle Surgery; Emergency Provider Emergency Medicine; PCP Obstetrics & Gynecology; Visit Provider Orthopaedic Surgery Foot and Ankle Surgery
PROC: 0SSF04Z Reposition Right Ankle Joint with Internal Fixation Device, Open Approach (ICD-10-PCS; principal; 2023-10-08 08:00)
DX: S82.61XC Displaced fracture of lateral malleolus of right fibula, initial encounter for open fracture type IIIA, IIIB, or IIIC (principal); Z68.43 Body mass index [BMI] 50.0-59.9, adult; S99.811A Other specified injuries of right ankle, initial encounter; E66.01 Morbid (severe) obesity due to excess calories; F17.210 Nicotine dependence, cigarettes, uncomplicated; V86.69XA Passenger of other special all-terrain or other off-road motor vehicle injured in nontraffic accident, initial encounter; Z23 Encounter for immunization
CPT/HCPCS: 29515; 36415; 73590; 73610; 80048; 83036; 84703; 85025; 90471; 94640; 96365; 96366; 96375; 96376; 97161; 97166; 97530; 97535; 99284; 99285; 90715; C1713; J0171; J0330; J0690; J1100; J1170; J1200; J1650; J1885; J2250; J2405; J2704; J3010; J7613

== ENCOUNTER 2023-11-15 11:41 | Day surgery (SDC) | payer OTHER, SELFPAY ==
[2023-10-07 21:45] VITALS: BMI 58.0
[2023-11-13 12:09] VITALS: BMI 58.0
[2023-11-15 12:23] VITALS: BMI 58.0
[2023-11-15 12:41] VITALS: BP 127/88; PULSE 76; RESP 18; TEMP 36.4; O2SAT 95
[2023-11-15] MEDS: LACTATED RINGERS 1,000 ML 42 ML IV ×2 (12:44→13:54)
--- NOTE | 2023-11-15 13:00 | PM.PREOP ---
Pre-operative Note Interval Note History & Physical reviewed/Exam performed by Physician: Yes Changes to H&P: No
[2023-11-15] MEDS: CEFAZOLIN VIAL 3 GM in SODIUM CHLORIDE 0.9% 100 ML IV (13:47)
--- NOTE | 2023-11-15 13:49 | SUR.OPER ---
Supine on padded OR bed, head on pillow, arms secured on padded arm boards at <90 degrees abduction, legs uncrossed, safety belt at thigh, tape over blanket over lower legs. bankets under right leg
[2023-11-15] MEDS: ACETAMINOPHEN IV 1,000 MG/100 ML VIAL 400 MG IV (14:06)
[2023-11-15 14:57] VITALS: BP 106/62; PULSE 74; RESP 14; TEMP 36.2; O2SAT 94
[2023-11-15] MEDS: HYDROMORPHONE 1 MG INJ IV ×4 (14:57→15:11)
[2023-11-15 15:02] VITALS: BP 125/70; PULSE 76; RESP 13; O2SAT 97
[2023-11-15 15:07] VITALS: BP 115/77; PULSE 73; RESP 14; O2SAT 95
[2023-11-15] MEDS: OXYCODONE IR 5 MG TABLET PO (15:13)
[2023-11-15 15:22] VITALS: BP 125/77; PULSE 71; RESP 16; O2SAT 94
[2023-11-15 15:24] VITALS: BP 121/66; PULSE 71; RESP 14; TEMP 36.2; O2SAT 98
--- NOTE | 2023-11-18 08:43 | PM.OP.1 ---
Operative Date/Time/Diagnoses Date of procedure: 11/15/23 Time of procedure: 12:00 Pre-op diagnosis: eschar traumatic right laceration leg Post-op diagnosis: same Procedure & Clinicians Procedure: Debridement, removal of eschar including skin and subcutaneous tissue fascia Of the right leg traumatic lacerationAnd complex closure 26 cm length cpt 77887 cpt 71246 cpt 00977 (x4) Modifier 58 for staged procedure, more extensive, debridement of traumatic open wound from open ankle fracture requiring additional wound debridement with a large traumatic open lower leg wound Same procedure as scheduled: Yes Indications: The patient is a 43-year-old female that sustained a type IIIa open ankle fracture approximately 1 month ago she was emergently taken for open reduction internal fixation indication and debridement and complex wound closure. She has had some wound dehiscence and eschar, wound edge demarcation along her anterior traumatic wound. She has been indicated for staged wound debridement removal of eschar washout and closure for her traumatic injury. We discussed the rationale for, risks of, and prolonged recovery associated with this surgery. The patient expressed understanding of all issues including risks of infection, nerve damage, wound dehiscence, nonunion, malunion, symptomatic hardware, overcorrection or undercorrection of deformity, incomplete relief of pain, inability to return to the patient's desired level of function, generalized dissatisfaction with the surgical procedure and outcome, deep vein thrombosis (DVT), pulmonary embolus, (PE), cardiac complications and . consent was signed Surgeon: Clemencia Odell Click Yes if Unassisted: Yes Anesthesia Type: General Operative Notes Findings: Dehiscence and eschar formation along the length of the anterior bianchi incision 26 cm in length. Eschar was sharply excised including skin subcutaneous tissue down to the level of fascia. This was thoroughly irrigated. No purulence was demonstrated. Once viable wound edges were obtained and slightly undermined to release tension the wound was closed with 2-0 PDS 4-0 Monocryl and 2-0 and 3-0 nylon suture Closure Type: primary Specimen(s): other (Tissue sent for culture) Estimated Blood Loss (mL): 5 Blood products transfused: none Tourniquet time (min): 0 Procedure in detail: Patient was seen in the preoperative area the site of surgery was marked informed consent confirmed. This was the right lower extremity. The patient was brought back to the operating room by the anesthesia team positioned supine on operative table. Bony problems well-padded. No tourniquet was utilized. The right lower extremities prepped and draped in standard sterile fashion a formal timeout procedure was performed confirming the patient site and site of surgery administration of weight-based antibiotic. All were in agreement. Attention turned to the right lower extremity. The large anterior laceration was exposed this was measured 26 cm. Scalpel was used to sharply excise the wound edges and eschar to obtain new clean bleeding wound edges. Subcutaneous tissue and fascia was also sharply debrided and excised. Once this was completed the wound was irrigated with pulsatile lavage. Then deep tissue cultures were sent. Wound edges were carefully undermined to help with approximation. 2-0 nylon trauma sutures were placed to approximate the wound then subcutaneous 2-0 PDS and Monocryl sutures were used for approximation of the subcutaneous tissues. 3-0 and 2-0 nylon sutures were then placed in the holding trauma sutures later removed. Once wound closure was completed a holli dressing incisional wound VAC was applied for additional aid in decreasing tension and facilitating healing of the large traumatic wound. Good seal was obtained. An Timmy wrap was applied. The patient was awoken from anesthesia and taken to the recovery room in good condition there are no immediate complications from this procedure. All counts were correct. Complications: none Post-operative Condition: stable Disposition: PACU Plan for aftercare: Weight-bear as tolerated right lower extremity. Holli dressing will function for 1 week at that point the batteries will stop functioning and the hose can be. The bandage will remain in place like a regular bandage until follow-up in the orthopedic clinic.
== END 2023-11-15 15:45 | disposition home or self-care (01) ==
PROVIDERS: PCP Obstetrics & Gynecology; Referring Provider Orthopaedic Surgery Foot and Ankle Surgery; Visit Provider Orthopaedic Surgery Foot and Ankle Surgery
PROC: (CPT 13160; principal; 2023-11-15 13:30)
DX: T81.33XA Disruption of traumatic injury wound repair, initial encounter (principal); R23.4 Changes in skin texture; E66.01 Morbid (severe) obesity due to excess calories; Z68.43 Body mass index [BMI] 50.0-59.9, adult
CPT/HCPCS: 13160; 81025; 87070; 87075; 87205; J0136; J0330; J0690; J1100; J1171; J1885; J2250; J2405; J2704; J3010